=== PATIENT | female | born 1955 | race Caucasian/White ===

== ENCOUNTER 2017-12-18 11:13 | Inpatient (IN) | payer MEDICAID ==
[~2017-12-18] VITALS: Ht 162.6 cm; Wt 54.4 kg
[~2017-12-18 11:13] MED LIST: ACCUNEB SO1.25 MG/1 INH; AEROECLIPSE1 EACH; AUGMENTIN 875875 MG PO; BACTRIM DS TAB1 EACH PO; LEVAQUIN 750 M750 MG PO; LISINOPRIL10 MG PO; MUCINEX600 MG PO; NICOTINE TRANSD21 M1 TOP; NICOTINE TRANSD21 M1 TRANSDERM; NORCO 5-325 TA1 EAC1 PO; PREDNISONE 10 M10 MG PO; SPIRIVA; SYMBICORT160 MCG/4.; SYMBICORT160 MCG/4. INH; ULTRAM50 MG PO; UNKNOWN BP MED; VALIUM5 MG PO; VICODIN 5-5001 EACH PO
[2017-12-18 11:19] VITALS: BP 176/99
[2017-12-18] MEDS ORDERED: NICOTINE TRANSD21 M1 TRANSDERM (11:29)
[2017-12-18] MEDS ORDERED: BENADRYL25 MG PO (11:30)
[2017-12-18 11:38] LABS: ABSOLUTE BASOPHILS 0.1 thou/uL (0.0-0.2); ABSOLUTE EOSINOPHILS 0.1 thou/uL (0.0-0.7); ABSOLUTE LYMPHOCYTES 1.9 thou/uL (0.8-5.3); ABSOLUTE MONOCYTES 0.7 thou/uL (0.0-1.2); ABSOLUTE NEUTROPHILS 12.4 thou/uL (1.6-8.1); BASOPHILS 0.6 %; EOSINOPHILS 0.5 %; HEMATOCRIT 39.2 % (37.0-47.0); HEMOGLOBIN 13.3 gm/dL (12.0-15.0); LYMPHOCYTES 12.5 %; MCH 35.3 pg (26.0-34.0); MCHC 33.8 g/dL (28.0-37.0); MCV 104.3 fL (80.0-100.0); MONOCYTES 4.6 %; MPV 7.2 fl. (7.2-11.1); NUCLEATED RBCS 0 /100WBC; PLATELET COUNT* 348 thou/uL (150-400); POLYS 81.8 %; RBC 3.76 mil/uL (4.20-5.00); WBC 15.2 thou/uL (4.0-11.0)
[2017-12-18 11:46] LABS: ANION GAP 14 mmol/L (7-16); BUN 12 mg/dL (7-18); CALCIUM 8.3 mg/dL (8.5-10.1); CHLORIDE 98 mmol/L (98-107); CO2 21 mmol/L (21-32); CREATININE 0.6 mg/dL (0.6-1.3); GLUCOSE 81 mg/dL (70-99); POTASSIUM 3.6 mmol/L (3.5-5.1); SODIUM 133 mmol/L (136-145)
[2017-12-18 11:57] LABS: ALBUMIN 3.8 g/dL (3.4-5.0); ALKALINE PHOSPHATASE 80 U/L (46-116); LIPASE 65 U/L (73-393); MAGNESIUM 1.8 mg/dL (1.8-2.4); NT-PRO BRAIN NAT PEPTIDE 60 pg/mL (<300); SGOT 37 U/L (15-37); SGPT 25 U/L (30-65); TOTAL BILIRUBIN 1.5 mg/dL (<0.1-1.0); TOTAL PROTEIN 6.9 g/dL (6.4-8.2); TROPONIN-I LEVEL <0.06 ng/mL (<0.06)
[2017-12-18 14:38] VITALS: BP 166/83
--- NOTE | 2017-12-18 15:28 | EKG ---
[place] [address] ELECTROCARDIOGRAM REPORT Name: NEENA DIAZ Room: [address] ADM IN M.R.#: [id number] Admission: 12/18/17 Attend Phys: Tyrel Dubose Discharge: Date of : 55 Report #: [id number] THIS REPORT FOR: //name// [facility] ED Test Date: 2017-12-18 Test Time: 11:17:34 Pat Name: NEENA DIAZ Department: Room: [facility] Gender: F Ironer Sock: Kapil CHEN : 1955 Requested By: Nik Mckenzie Order Number: [id number] MD: Michael Coleman Measurements Intervals [place] Rate: 102 P: 81 NM: 168 QRS: 31 QRSD: 96 T: 57 QT: 340 QTc: 443 Interpretive Statements Sinus tachycardia Consider right atrial enlargement septal infarct, old Compared to ECG 07/30/2017 16:52:11 Myocardial infarct finding now present Sinus rhythm no longer present T-wave abnormality no longer present Electronically Signed On 12-18-2017 15:27:52 CDT by Michael Coleman [email or web address] <ELECTRONICALLY SIGNED> By: Michael Coleman MD, FAC 12/18/17 1527 1117 1117 Michael Coleman MD, [facility] /EPI
[2017-12-18 15:40] VITALS: BP 170/80
[2017-12-18 15:53] LABS: CREATININE 0.7 mg/dL (0.6-1.3)
--- NOTE | 2017-12-18 18:43 | NUR ---
PT SCORING A 16 ON HER CIWA ATIVAN GIVEN X 2 PT IS ALERT AND ORIENTED VERY RESTLESS AND TREMORS NOTED UP SBA D/T TREMORS PT IS COOPERATIVE AND PLEASANT CALLS OUT APPROPRIATELY ST ON THE MONITOR BLOOD PRESSURE SLIGHTLY ELEVATED
[2017-12-18 19:35] VITALS: BP 128/75
[2017-12-19] VITALS: BP 128/70
[2017-12-19 04:00] VITALS: BP 149/86
--- NOTE | 2017-12-19 04:46 | NUR ---
END SHIFT: PT RESTED WELL. CIWA HAS DECREASED THROUGHOUT NIGHT. PT REMAINS ORIENTED AND COOPERATIVE. SR ON MONITOR. ASSESSMENT UNCHANGED. VSS. SAFETY PRECAUTIONS IN PLACE. CALL LIGHT IN REACH. WILL CONT TO MONITOR.
[2017-12-19 08:00] VITALS: BP 167/89
[2017-12-19 10:27] LABS: ABSOLUTE EOSINOPHILS 0.2 thou/uL (0.0-0.7); ABSOLUTE LYMPHOCYTES 2.4 thou/uL (0.8-5.3); ABSOLUTE MONOCYTES 0.7 thou/uL (0.0-1.2); ABSOLUTE NEUTROPHILS 3.1 thou/uL (1.6-8.1); BASOPHILS 0.3 %; EOSINOPHILS 3.2 %; HEMATOCRIT 38.9 % (37.0-47.0); HEMOGLOBIN 13.2 gm/dL (12.0-15.0); LYMPHOCYTES 37.3 %; MCH 36.4 pg (26.0-34.0); MCHC 33.9 g/dL (28.0-37.0); MCV 107.3 fL (80.0-100.0); MONOCYTES 10.5 %; NUCLEATED RBCS 0 /100WBC; PLATELET COUNT* 304 thou/uL (150-400); POLYS 48.7 %; RBC 3.62 mil/uL (4.20-5.00); RDW-CV 15.7 % (10.5-14.5); WBC 6.3 thou/uL (4.0-11.0)
[2017-12-19 10:29] LABS: CALCIUM 7.9 mg/dL (8.5-10.1); CREATININE 0.7 mg/dL (0.6-1.3); POTASSIUM 4.1 mmol/L (3.5-5.1)
[2017-12-19 11:17] VITALS: BP 128/73
--- NOTE | 2017-12-19 11:31 | NUR ---
ASSUMED RESPONSIBILITY OF PT THIS AM PT IS ALERT AND ORIENTEDX4 BUT ANXIOUS HRR AT 88 SOMETIMES TACHY WHEEZES AND COARSE LS NOTED DUONEB TX'S STARTED Q6H SCHEDULED PT IS A SMOKER 1/2-1 PACK A DAY NEW IV TO RIGHT HAND NS AT 100/H WBC IS 15.2 ECHO DONE THIS AM AND PLAN FOR STRESS TEST THIS AFTERNOON
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
[2017-12-19 15:46] VITALS: BP 143/87
--- NOTE | 2017-12-19 15:50 | 2DMMODE ---
[place] [address] 2 D/M-MODE ECHOCARDIOGRAM Name: NEENA DIAZ Room: [address] IN [facility]#: [id number] Admission: 12/18/17 Attend Phys: Pablo Rdz Discharge: Date of : 55 Date of Service: 12/19/17 1549 Report #: [id number] THIS REPORT FOR: //name// APPROVED REPORT Study performed: 12/19/2017 09:32:27 EXAM: Comprehensive 2D, Doppler, and color-flow Echocardiogram Patient Location: In-Patient Room #: 204 Status: routine BSA: 1.56 HR: 82 bpm BP: 167/89 mmHg Rhythm: NSR Other Information Study Quality: Good Indications Dyspnea Chest Pain 2D Dimensions LVEF(%): 70.96 (>50%) IVSd: 8.88 (7-11mm) LVOT Diam: 19.63 (18-24mm) LVDd: 39.81 mm PWd: 8.39 (7-11mm) Ascending Ao: 24.14 (22-36mm) LVDs: 23.97 (25-40mm) Aortic Root: 27.61 mm Lewis's LVEF: 70.96 % Volumes Left Atrial Volume (Systole) LA ESV Index: 19.60 mL/m2 Aortic Valve AoV Peak Artur.: 1.23 m/s AO Peak Gr.: 6.04 mmHg LVOT Max P.62 mmHg AO Mean Gr.: 3.17 mmHg LVOT Mean P.60 mmHg LVOT Max V: 0.95 m/s AO V2 VTI: 23.02 cm LVOT Mean V: 0.57 m/s LEONEL (VTI): 2.65 cm2 LVOT V1 VTI: 20.16 [place] [address] 2 D/M-MODE ECHOCARDIOGRAM Name: NEENA DIAZ Room: [address] IN ..#: [id number] Admission: 12/18/17 Attend Phys: Pablo Rdz Discharge: Date of : 55 Date of Service: 12/19/17 1549 Report #: [id number] E/A Ratio: 1.14 MV Decel. Time: 178.19 ms MV E Max Artur.: 0.99 m/s MV PHT: 51.67 ms MVA (PHT): 4.26 cm2 TDI E/Lateral E': 9.00 E/Medial E': 8.25 Medial E' Artur.: 0.12 m/s Lateral E' Artur.: 0.11 m/s Pulmonary Valve PV Peak Artur.: 1.00 m/s PV Peak Gr.: 4.02 mmHg Tricuspid Valve TR Peak Gr.: 21.34 mmHg RVSP: 26.00 mmHg Left Ventricle The left ventricle is normal size. There is normal LV segmental wall motion. There is normal left ventricular wall thickness. Left ventricular systolic function is normal. LVEF is 60-65%. The left ventricular diastolic function is normal. Right Ventricle The right ventricle is normal size. The right ventricular systolic function is normal. Atria The left atrium size is normal. The right atrium size is normal. Aortic Valve The aortic valve is normal in structure. No aortic regurgitation is present. There is no aortic valvular stenosis. Mitral Valve The mitral valve is normal in structure. Trace mitral regurgitation. No evidence of mitral valve stenosis. Tricuspid Valve The tricuspid valve is normal in structure. Trace tricuspid regurgitation. The RVSP is ____26___ mmHg. Pulmonic Valve The pulmonary valve is normal in structure. There is no pulmonic [place] [address] 2 D/M-MODE ECHOCARDIOGRAM Name: NEENA DIAZ Room: [address] IN ..#: [id number] Admission: 12/18/17 Attend Phys: Pablo Rdz Discharge: Date of : 55 Date of Service: 12/19/17 1549 Report #: [id number] Great Vessels The aortic root is normal in size. IVC is normal in size and collapses with >50% inspiration Pericardium There is no pericardial effusion. <Conclusion> The left ventricle is normal size. There is normal left ventricular wall thickness. Left ventricular systolic function is normal. LVEF is 60-65%. The left ventricular diastolic function is normal. Trace tricuspid regurgitation. The RVSP is ____26___ mmHg. <ELECTRONICALLY SIGNED> By: Arnold Link MD, FACC 12/19/17 1549 1549 1549 Arnold Link MD, FACC /INF
--- NOTE | 2017-12-19 18:50 | NUR ---
PT IS ALERT AND ORIENTED DECREASED ANXIETY STRESS TEST DONE PROBABLY DISCHARGE TOMORROW NO ISSUES THUS FAR CALL LIGHT IN REACH
[2017-12-19 19:35] VITALS: BP 148/86
--- NOTE | 2017-12-19 20:04 | CARDNUC ---
[place] [address] CARDIAC NUCLEAR IMAGING REPORT Name: NEENA DIAZ Room: [address] IN [facility]#: [id number] Admission: 12/18/17 Attend Phys: Pablo Rdz Discharge: Date of : 55 Date of Service: 12/19/172003 Report #: [id number] THIS REPORT FOR: //name// APPROVED REPORT Study performed: 12/19/2017 11:16:00 Exam: Nuclear Stress Test Indication: Chest pain Patient Location: In-Patient Room #: 204 Stress Tech: Jessie Lizama Stress Nurse: Reyna Michaels RN NM Tech:BRUNO Romero Ht: 5 ft 4 in Wt: 115 lbs BSA: 1.55 m2 BMI: 19.73 Medical History Medical History: HTN, Hyperlipidemia, Smoking, COPD Medications: lisinopril Allergies: No known drug allergies Cardiac Risk Factors: Age, Current Smoker, HTN, Hyperlipidemia Exercise History: Sedentary Stress Test Details Stress Test: Pharmacologic stress was paired with low level exercise. Reason for pharmacologic stress test: physical limitation. HR Resting HR: 94 bpm Max Heart Rate (APMHR): 158 bpm Max HR Achieved: 124 bpm Target HR (85% APMHR): 134 bpm % of APMHR: 78 Recovery HR: 110 bpm BP Resting BP: 162/95 mmHg Max BP: 149/88 mmHg ECG Resting ECG: Sinus Rhythm, normal EKG Stress ECG: Sinus Rhythm, normal EKG ST Change: [place] [address] CARDIAC NUCLEAR IMAGING REPORT Name: NEENA DIAZ Room: [address]#: [id number] Admission: 12/18/17 Attend Phys: Pablo Rdz Discharge: Date of : 55 Date of Service: 12/19/172003 Report #: [id number] Arrhythmia: None Recovery ECG: Sinus Rhythm, normal EKG Recovery ST Change: None Recovery Arrhythmia: None Clinical Reason for Termination: Completed protocol Stress Symptoms: Dyspnea Exercise duration: 3 min 59 sec Exercise capacity: 1.54 METs The patient had no significant chest pain with Lexiscan infusion. She did note some shortness of breath felt to be a medication side effect. Nurse Comments Patient complained of sob post lexiscan injection, denied chest pain, resolved in recovery. Stress ECG Conclusion The baseline 12-lead electrocardiogram showed sinus rhythm thousand Mr. T wave abnormality. EKGs obtained during and post Lexiscan infusion showed sinus rhythm and sinus tachycardia with no significant ST or T wave changes when compared baseline. NM EXAM: Myocardial Perfusion REST/STRESS Imaging Protocol: Rest Tc-99m/Stress Tc-99m 1 day Resting Data Rest SPECT myocardial perfusion imaging was performed in supine position 30 minutes following the intravenous injection of 12.0 mCi of Tc-99m Sestamibi. Time of rest injection: 1310 Time of rest imagin The images were gated to evaluate regional wall motion and calculate left ventricular ejection fraction. Administration Route: IV Pharmacologic Stress Pharmacologic stress test was performed by injecting Regadenoson 0.4 mg IV push followed by the intravenous injection of 34.9 mCi of Tc-99m Sestamibi. Time of stress injection: 1430 Time of stress imagin Administration Route: IV Gated Stress SPECT was performed 40 minutes [place] [address] CARDIAC NUCLEAR IMAGING REPORT Name: NEENA DIAZ Room: [address] IN ..#: [id number] Admission: 12/18/17 Attend Phys: Pablo Rdz Discharge: Date of : 55 Date of Service: 12/19/172003 Report #: [id number] The images were gated to evaluate regional wall motion and calculate left ventricular ejection fraction. Prone imaging was performed. Study Quality Study: Good Artifact: No artifact Study Data At rest, the left ventricular ejection fraction was 68%.. Post stress, the left ventricular ejection was 69%.. TID = 1.05. Perfusion Normal left ventricular perfusion. Wall Motion Normal left ventricular wall motion. Nuclear Conclusion ECG Findings: negative for ischemia Clinical Findings: negative for ischemia Nuclear Findings: negative for ischemia Exercise Capacity: not assessed Left Ventricular Function: normal Risk Study: low Myocardial perfusion images show no defect to suggest infarct or ischemia. Left ventricular systolic function is normal on gated studies. This is a low risk study. <Conclusion> The baseline 12-lead electrocardiogram showed sinus rhythm thousand Mr. T wave abnormality. EKGs obtained during and post Lexiscan infusion showed sinus rhythm and sinus tachycardia with no significant ST or T wave changes when compared baseline. <ELECTRONICALLY SIGNED> By: Arnold Link MD, FACC 12/19/172003 03 03 Arnold Link MD, FACC /INF
[2017-12-20] VITALS: BP 154/72
[2017-12-20 04:00] VITALS: BP 133/75
--- NOTE | 2017-12-20 04:27 | NUR ---
END SHIFT: PT RESTED WELL. NO COMPLAINTS. CIWA IS DECREASING. ORIENTED AND STEADY WHEN UP. NO PAIN. PT STATES SHE IS READY FOR DC. ASSESMENT UNCHANGED. VSS. SAFETY PRECAUTIONS IN PLACE. CALL LIGHT IN REACH. PERFORMED HOURLY ROUNDING. WILL CONT TO MONITOR.
[2017-12-20 08:00] VITALS: BP 155/79
[2017-12-20 11:24] VITALS: BP 127/79
[2017-12-20 11:55] LABS: HEMATOCRIT 36.7 % (37.0-47.0); HEMOGLOBIN 12.4 gm/dL (12.0-15.0); MCH 35.9 pg (26.0-34.0); MCHC 33.7 g/dL (28.0-37.0); MCV 106.6 fL (80.0-100.0); MPV 7.1 fl. (7.2-11.1); RBC 3.45 mil/uL (4.20-5.00); RDW-CV 16.2 % (10.5-14.5); WBC 5.6 thou/uL (4.0-11.0)
[2017-12-20 12:02] LABS: CALCIUM 8.5 mg/dL (8.5-10.1); CREATININE 0.8 mg/dL (0.6-1.3); MAGNESIUM 2.1 mg/dL (1.8-2.4)
--- NOTE | 2017-12-20 12:37 | NUR ---
RECEIVED REPORT. ASSUMED CARE OF PT AROUND 729. PT ALERT AND ORIENTED X4. VSS. O2 SAT 100% ON RA. CIWA 0 AT THIS TIME. PT LOOKING FORWARD TO GOING HOME. IV PATENT AND INFUSING. SENIOR INSTRUCTOR IN PLACE TRACING SR. AM ASSESSMENT AND VITALS COMPLETED CHARTED. PT EATING AND DRINKING WITHOUT ISSUE. PT UP WITH STANDBY ASSIST TO THE BATHROOM, VOIDING WITHOUT ISSUE. PT INFORMED OF PLAN OF CARE, PT COMMUNICATES UNDERSTANDING. PT PLAN IS TO DC TODAY. LOW FALL RISK PRECAUTIONS IN PLACE. CALL LIGHT IS WITHIN REACH. WCTM FOR DURATION OF SHIFT. HOURLY ROUNDING COMPLETED.
[2017-12-20] MEDS ORDERED: ATIVAN1 MG PO (12:47)
[2017-12-20] MEDS ORDERED: OMEPRAZOLE 20 M20 M1 PO (12:48)
[2017-12-20 12:49] VITALS: BP 127/79
--- NOTE | 2017-12-20 15:09 | NUR ---
Pt discharging to home today. Cab voucher provided
--- NOTE | 2017-12-20 16:19 | NUR ---
DISCHARGE ORDERS RECEIVED. DISCHARGE COMPLETED DOCUMENTED. DISCHARGE SUMMARY AND CARE NOTES GONE OVER WITH PT. PT COMMUNICATES UNDERSTANDING. SCRIPTS GIVEN. ALL BELONGINGS GATHERED AND SENT WITH THE PT. IV AND SOLO MUSICIAN REMOVED. PT VSS AT TIME OF DC. CIWA REMAINS 0. PT EATING AND DRINKING WITHOUT ISSUE. VOIDING WITHOUT ISSUE. PT LEFT UNIT WITH NURSING STAFF. PT LEFT HOSPITAL IN CAB WITH VOUCHER, TO HOME WITH NO STOPS.
== END 2017-12-20 15:47 | disposition home or self-care (01) | DRG 311 ==
LOC: M.ERS 11:13 → M.2W 13:38 → M.TBA-ER 13:38 → M.2W 14:57
PROVIDERS: Emergency Medicine Emergency Medical Services; ADMIT Internal Medicine
PROC: B24BZZ4 Ultrasonography of Heart with Aorta, Transesophageal (ICD-10-PCS; principal; 2017-12-19)
DX: I20.9 Angina pectoris, unspecified (principal); F10.230 Alcohol dependence with withdrawal, uncomplicated; J44.1 Chronic obstructive pulmonary disease with (acute) exacerbation; E87.1 Hypo-osmolality and hyponatremia; E78.5 Hyperlipidemia, unspecified; K02.9 Dental caries, unspecified; K04.7 Periapical abscess without sinus; E87.6 Hypokalemia; F32.9 Major depressive disorder, single episode, unspecified; F17.210 Nicotine dependence, cigarettes, uncomplicated; Z90.49 Acquired absence of other specified parts of digestive tract; Z79.899 Other long term (current) drug therapy

== ENCOUNTER 2018-07-23 07:44 | Inpatient (IN) | payer MEDICAID ==
[~2018-07-23] VITALS: Ht 162.6 cm; Wt 61.5 kg
[~2018-07-23 07:44] MED LIST changes: +ATIVAN1 MG PO; +BENADRYL25 MG PO; +OMEPRAZOLE 20 M20 M1 PO
[2018-07-23 07:45] VITALS: BP 157/73
[2018-07-23] MEDS ORDERED: NORVASC5 MG PO (07:49)
[2018-07-23] MEDS ORDERED: GABAPENTIN 100100 MG PO (07:49)
[2018-07-23] MEDS ORDERED: MELATONIN1 MG PO (07:50)
[2018-07-23] MEDS ORDERED: SPIRIVA INH (07:50)
[2018-07-23 08:14] LABS: ABSOLUTE EOSINOPHILS 0.2 thou/uL (0.0-0.7); ABSOLUTE LYMPHOCYTES 3.1 thou/uL (0.8-5.3); ABSOLUTE MONOCYTES 0.6 thou/uL (0.0-1.2); BASOPHILS 0.5 %; EOSINOPHILS 1.8 %; HEMATOCRIT 33.7 % (37.0-47.0); HEMOGLOBIN 11.4 gm/dL (12.0-15.0); LYMPHOCYTES 34.8 %; MCH 36.8 pg (26.0-34.0); MCHC 33.8 g/dL (28.0-37.0); MCV 108.8 fL (80.0-100.0); MONOCYTES 6.8 %; MPV 7.4 fl. (7.2-11.1); NUCLEATED RBCS 0 /100WBC; PLATELET COUNT* 238 thou/uL (150-400); POLYS 56.1 %; RBC 3.09 mil/uL (4.20-5.00); RDW-CV 14.8 % (10.5-14.5)
--- NOTE | 2018-07-23 08:17 | NUR ---
RT HAS BEEN PAGED.
--- NOTE | 2018-07-23 08:21 | NUR ---
RT IS HERE TO GIVE PT BREATHING TX AT THIS TIME.
[2018-07-23 08:25] LABS: APTT 22.9 Seconds (25.0-31.3); PROTIME 10.5 Seconds (9.20-11.50)
[2018-07-23 08:38] LABS: ANION GAP 4 mmol/L (7-16); BUN 5 mg/dL (7-18); CALCIUM 8.1 mg/dL (8.5-10.1); CHLORIDE 109 mmol/L (98-107); CO2 28 mmol/L (21-32); CREATININE 0.7 mg/dL (0.6-1.3); GLUCOSE 85 mg/dL (70-99); POTASSIUM 3.7 mmol/L (3.5-5.1); SODIUM 141 mmol/L (136-145)
[2018-07-23 08:42] LABS: ALBUMIN 3.1 g/dL (3.4-5.0); ALKALINE PHOSPHATASE 78 U/L (46-116); LIPASE 79 U/L (73-393); MAGNESIUM 1.8 mg/dL (1.8-2.4); NT-PRO BRAIN NAT PEPTIDE 221 pg/mL (<300); SGOT 39 U/L (15-37); SGPT 26 U/L (30-65); TOTAL BILIRUBIN 0.3 mg/dL (<0.1-1.0); TOTAL PROTEIN 5.9 g/dL (6.4-8.2); TROPONIN-I LEVEL <0.06 ng/mL (<0.06)
[2018-07-23 09:26] LABS: URINE BILIRUBIN NEGATIVE (Negative); URINE BLOOD 1+ (Negative); URINE CLARITY CLEAR; URINE COLOR YELLOW; URINE GLUCOSE-RANDOM NEGATIVE (Negative); URINE KETONES NEGATIVE (Negative); URINE PROTEIN NEGATIVE (Negative); URINE UROBILINOGEN 0.2 E.U./dl (0.2-1.0)
[2018-07-23 09:37] LABS: URINE LEUKOCYTES-REFLEX 3+ (Negative); URINE NITRITE-REFLEX POSITIVE (Negative)
[2018-07-23 09:38] LABS: CASTS None Seen /LPF (None Seen); CRYSTALS None Seen /LPF (None Seen); MUCUS 0-3 Light strn/LPF (None Seen); SQUAMOUS 0-3 Few /LPF (0-3); URINE RBC 0-2 Rare /HPF (0-2); URINE WBC-REFLEX >25 Many /HPF (0-5)
[2018-07-23 11:26] VITALS: BP 165/70
--- NOTE | 2018-07-23 11:46 | EKG ---
[place] [address] ELECTROCARDIOGRAM REPORT Name: NEENA DIAZ Room: [address] ADM IN M.R.#: [id number] Admission: 07/23/18 Attend Phys: Karen Baugh MD Discharge: Date of : 55 Report #: [id number] THIS REPORT FOR: //name// [facility] ED Test Date: 2018-07-23 Test Time: 07:49:30 Pat Name: NEENA DIAZ Department: Room: [facility] Gender: F Power Washer: YAA : 1955 Requested By: Rahul Wei Order Number: [id number] MD: Michael Coleman Measurements Intervals [place] Rate: 77 P: 91 DE: 166 QRS: 39 QRSD: 94 T: 75 QT: 376 QTc: 426 Interpretive Statements Sinus rhythm Consider right atrial enlargement Compared to ECG 12/18/2017 11:17:34 Sinus tachycardia no longer present Myocardial infarct finding no longer present Electronically Signed On 07-23-2018 11:46:12 STOP ATTACHER by Michael Coleman [email or web address] <ELECTRONICALLY SIGNED> By: Michael Coleman MD, [facility] 07/23/18 1146 0749 0749 Michael Coleman MD, [facility] /EPI
[2018-07-23 11:52] VITALS: BP 175/90
[2018-07-23 16:08] VITALS: BP 126/64
--- NOTE | 2018-07-23 18:28 | NUR ---
ALERT AND ORIENTED X4. UP WITH STAND BY ASSIST X1 TO BATHROOM. IV IS PATENT AND SALINE LOCKED. PAIN BEING MANAGED WITH PO MEDICATION. DENIES NAUSEA. NICOTINE PATCH IN PLACE. TOLERATING DIET. FALL CONTRACT EDUCATED GIVEN AND SIGNED. VSS ON ROOM AIR. HOURLY ROUNDS HAVE BEEN MAINTAINED SINCE ARRIVING ON UNIT. CALL LIGHT IS WITHIN REACH. NURSING WILL CONTINUE TO MONITOR.
--- NOTE | 2018-07-23 19:59 | NUR ---
PATIENT ARRIVED TO UNIT AT 1145. ALERT AND ORIENTED X4. UP STAND BY ASSIST TO THE BATHROOM. DENIES NEED FOR PAIN AND NAUSEA MEDICATION. IV IS PATENT AND SALINE LOCKED. PATIENT HAS BEEN ORIENTED TO ROOM. CALL LIGHT IS WITHIN REACH. NURSING WILL CONTINUE TO MONITOR.
[2018-07-23 20:00] VITALS: BP 145/78
[2018-07-24] VITALS: BP 120/59
--- NOTE | 2018-07-24 03:51 | NUR ---
PT ALERT ORIENTED. UP TO BR WITH STD BY ASSIST. TYLENOL GIVEN HS FOR OLD RIB FX PAIN. PT RESTING QUIETYL WITH EYES CLOSED. TELEMETRY SHOWS SR. WILL CONTININUE TO MONITOR.
[2018-07-24 04:00] VITALS: BP 108/87
[2018-07-24 05:18] LABS: HEMATOCRIT 35.3 % (37.0-47.0); HEMOGLOBIN 11.9 gm/dL (12.0-15.0); MCH 36.4 pg (26.0-34.0); MCHC 33.6 g/dL (28.0-37.0); MCV 108.3 fL (80.0-100.0); MPV 7.8 fl. (7.2-11.1); RBC 3.26 mil/uL (4.20-5.00); RDW-CV 14.4 % (10.5-14.5); WBC 8.4 thou/uL (4.0-11.0)
[2018-07-24 05:35] LABS: ALBUMIN 3.2 g/dL (3.4-5.0); CALCIUM 8.5 mg/dL (8.5-10.1); CREATININE 0.8 mg/dL (0.6-1.3); MAGNESIUM 1.9 mg/dL (1.8-2.4); POTASSIUM 3.5 mmol/L (3.5-5.1); TOTAL BILIRUBIN 0.5 mg/dL (<0.1-1.0); TOTAL PROTEIN 6.2 g/dL (6.4-8.2)
[2018-07-24 08:00] VITALS: BP 110/75
--- NOTE | 2018-07-24 11:01 | NUR ---
SITE LEADER FAXED [employer] WITH [employer] PATIENT'S FACESHEET, H&P, AND DME ORDER FOR HOME NEBULIZER. CM WILL REMAIN AVIALABLE TO ASSIST AND FOLLOW NEEDED.
[2018-07-24 12:11] VITALS: BP 124/65
--- NOTE | 2018-07-24 13:24 | NUR ---
Pt is A&O. Known to this CM from previous hospital stay. Resides at home alone. Independent with ADLS. Pt has STEPHON caregivers through [facility] that come 2x/week for 32 hours/day. Pt has home o2 through [facility]. Brit from [facility] delivered a nebulizer to Pt's room. Pt reports feeling sad lately d/t her ex dying in April. [place] Following.
[2018-07-24 16:00] VITALS: BP 135/66
--- NOTE | 2018-07-24 18:23 | NUR ---
PATIENT RESTING IN ROOM. UP AD SAQIB WITH STEADTY GAIT. VITAL SIGNS STABLE ANDPATINET IN NO APPARENT DISTRESS AT THTIS TIME. KATHY DOES SUFFER FROM ANXIETY BUT IS EASILY COMFORTED WITH CONVERSATION. HOURY ROUNDING COMPLETED FOR [place] SAFETY AND PATIENT IS PROGRESSING TOWARDS GOALS. KATHY HAS EXPRESSED THE INTENT TO DISCHARGE BY MONDAY TO SELF CARE AT HOME.
[2018-07-24 19:30] VITALS: BP 117/82; BP 149/76
[2018-07-25] VITALS: BP 133/66
[2018-07-25 04:00] VITALS: BP 150/82
--- NOTE | 2018-07-25 05:10 | NUR ---
VITALS WNL. SEE MAR. SEE CHARTING. HOURLY ROUNDING FOR SAFETY.
[2018-07-25 08:00] VITALS: BP 142/80
[2018-07-25 12:00] VITALS: BP 143/66
[2018-07-25 16:00] VITALS: BP 134/71
[2018-07-26] VITALS: BP 141/69
[2018-07-26 04:00] VITALS: BP 151/66
[2018-07-26 04:50] LABS: ABSOLUTE LYMPHOCYTES 1.3 thou/uL (0.8-5.3); ABSOLUTE MONOCYTES 0.5 thou/uL (0.0-1.2); ABSOLUTE NEUTROPHILS 9.5 thou/uL (1.6-8.1); BASOPHILS 0.1 %; HEMATOCRIT 33.9 % (37.0-47.0); HEMOGLOBIN 11.3 gm/dL (12.0-15.0); LYMPHOCYTES 11.8 %; MCH 36.4 pg (26.0-34.0); MCHC 33.5 g/dL (28.0-37.0); MCV 108.6 fL (80.0-100.0); MONOCYTES 4.7 %; MPV 7.6 fl. (7.2-11.1); NUCLEATED RBCS 0 /100WBC; PLATELET COUNT* 254 thou/uL (150-400); POLYS 83.4 %; RBC 3.12 mil/uL (4.20-5.00); RDW-CV 14.9 % (10.5-14.5); WBC 11.4 thou/uL (4.0-11.0)
--- NOTE | 2018-07-26 05:20 | NUR ---
VITALS WNL. SEE MAR. SEE CHARTING. HOURLY ROUNDING FOR SAFETY.
[2018-07-26 05:33] LABS: CALCIUM 8.6 mg/dL (8.5-10.1); CREATININE 0.7 mg/dL (0.6-1.3); MAGNESIUM 2.2 mg/dL (1.8-2.4); POTASSIUM 3.8 mmol/L (3.5-5.1); TOTAL BILIRUBIN 0.3 mg/dL (<0.1-1.0); TOTAL PROTEIN 5.9 g/dL (6.4-8.2)
[2018-07-26 07:35] VITALS: BP 147/72
[2018-07-26 12:39] VITALS: BP 146/89
[2018-07-26 16:22] VITALS: BP 150/80
--- NOTE | 2018-07-26 18:24 | NUR ---
ASSUMED CARE AT 0730. PT REMAINS A&O X4 CALM AND COOPERATIVE. PT VSS ON ROOM AIR. PT TRACING SR ON THE MONITOR. PT LUNGS CONTINUE TO BE WHEEZY ON ASCULTATION. SKIN DRY WARM AND INTACT. C/O PAIN CONTROLLED WITH PRN PAIN MEDICATION X1 TODAY. HOURLY ROUNDING COMPLETED FOR COMFORT AND SAFTEY. NURSING WILL CONTINUE TO MONITOR.
[2018-07-26 19:30] VITALS: BP 129/76
[2018-07-27] VITALS: BP 141/64
[2018-07-27 04:00] VITALS: BP 140/84
[2018-07-27 06:56] LABS: CALCIUM 8.7 mg/dL (8.5-10.1); CREATININE 0.9 mg/dL (0.6-1.3); MAGNESIUM 2.2 mg/dL (1.8-2.4); POTASSIUM 3.5 mmol/L (3.5-5.1)
--- NOTE | 2018-07-27 07:02 | NUR ---
TACHYNPNEA AT HS. SEE MAR. SEE CHART. FALL PRECAUTIONS IN PLACE. HOURLY ROUNDING FOR SAFETY.
--- NOTE | 2018-07-27 07:04 | NUR ---
VITALS WNL. SEE MAR. SEE CHARTING. HOURLY ROUNDING FOR SAFETY.
[2018-07-27 07:54] VITALS: BP 141/83
--- NOTE | 2018-07-27 11:14 | CON ---
[address] [address] CONSULTATION Name: NEENA DIAZ Room: [address] IN M.R.#: [id number] Admission: 07/23/18 Attend Phys: Karen Baugh MD Discharge: Date of : 55 Report #: [id number] THIS REPORT FOR: //name// CC: AUDREY physician/PCP Karen Baugh REASON FOR CONSULTATION: COPD. HISTORY OF PRESENT ILLNESS: This is a 62-year-old female patient with his longstanding history of smoking, who unfortunately continues to smoke. She smoked around a half pack a day for the last 40 years. She also has history of COPD, on Symbicort and breathing treatment at home. She admitted to the hospital with increasing shortness of breath of few weeks' duration. She had some records that she was evaluated at [facility] ER back on 05/22/2018 and at that time, she had CT scan with some ground glass infiltrate in the right upper lobe and nodular infiltrates. Apparently, she also sustained a fall at that time and she had a rib fracture. She was treated with oral antibiotic and steroids per her primary care physician with slight improvement in her symptoms and her symptoms started back with wheezes, cough, mostly dry, not producing any sputum and feeling short of breath. She presented to the ER and being evaluated. She reported history of feeling fever, chills, nausea, but no vomiting. She told me she had no sick contacts. She is still having rib pain. She tried not to take pain medicine. She reported poor appetite. She denied any lower extremity edema or calf tenderness. She denied any chest pain other than the rib pain. She has history of alcohol use and she continues to smoke. ALLERGIES: No known drug allergies. MEDICATIONS: At the time of admission, she was on Valium, albuterol, Symbicort, omeprazole, lisinopril, gabapentin, melatonin, and Spiriva. PAST MEDICAL HISTORY: Significant for COPD. She had staph infection of the left foot in the past. She has alcohol abuse/history of hypertension, anxiety, gastroesophageal reflux disease, and recently broken ribs in May after a fall and treated for pneumonia. PAST SURGICAL HISTORY: Hysterectomy. FAMILY HISTORY: Reviewed with the patient, noncontributory. SOCIAL HISTORY: He continues to smoke half a pack a day for the last 40 years, although she says she is trying to cut down. She drinks 2 glasses of wine every day. [place] [address] CONSULTATION Name: NEENA DIAZ Room: [address]#: [id number] Admission: 07/23/18 Attend Phys: Karen Baugh MD Discharge: Date of : 55 Report #: [id number] REVIEW OF SYSTEMS: She reported feeling fevers, chills and poor appetite or generalized weakness, but she denied any ear symptoms, sore throat. She reported cough with no sputum production. She denied any chest pain or GI symptoms. She denied change in bowel habits or urinary symptoms. Rest of the review of system was negative. PHYSICAL EXAMINATION: VITAL SIGNS: During my visit, she was on room air with saturation more than 90%, blood pressure 110/75, pulse rate of 100. She was afebrile. GENERAL: Thin lady, awake, alert, anxious. Speaks in full sentences, no distress. HEENT: Head normocephalic, atraumatic. Pupils reactive to light, not pale, no jaundice. Externally looks healthy and normal. Oral cavity: Moist mucous membrane. Mallampati of 2. NECK: Supple. Central trachea. No palpable lymph node. CHEST: Diminished air movement bilaterally, prolonged expiratory phase with end-expiratory wheeze. HEART: S1, S2, no murmur. ABDOMEN: Benign, soft, lax, nontender, positive bowel sounds. No rebound, no rigidity. EXTREMITIES: Lower extremity: No edema, no calf tenderness. NEUROLOGIC: Moving 4 extremities spontaneously. No focal weakness. Cranial nerves grossly normal. PSYCHIATRIC: Mood and affect anxious. Good insight and judgment. SKIN: Normal for age and race. LYMPHATICS: No palpable lymph node. LABORATORY DATA: White blood count 9, hemoglobin 11.4, platelets 238. INR of 1 with a creatinine of 0.8, potassium 3.7, sodium 141. Her BNP was not elevated. IMAGING DATA: Her chest x-ray did not show acute cardiopulmonary process and CT of the chest reviewed, no PE, some emphysematous changes on the nodular and ground-glass infiltrate that was reported on the CT scan back in May at [place], was not seen on the current CT scan. IMPRESSION: 1. Acute respiratory failure. 2. Chronic obstructive pulmonary disease exacerbation. 3. Fractured ribs. 4. History of pulmonary nodules that were not seen on the current CT scan. 5. History of smoking. 6. History of alcohol use/abuse. 7. Hypertension. 8. Anxiety. PLAN: At this point, the patient will be on IV steroids, scheduled nebulization [address] [address] CONSULTATION Name: NEENA DIAZ Room: [address] IN .R.#: [id number] Admission: 07/23/18 Attend Phys: Karen Baugh MD Discharge: Date of : 55 Report #: [id number] treatment. I did pre parole counseling aide her extensively about smoking cessation. Her CT scan report from back on 05/22/2018 at [facility] reported nodular infiltrate and ground-glass infiltrate in the right upper lobe, which had resolved, most likely represented an area of pneumonia at that time. I agree with monitoring him for alcohol withdrawal. We will continue antibiotics. Depending on the clinical progress, we will switch her to p.o. steroids soon. Again, she needs to stay away from cigarettes. Thank you for the consult. We will follow along with you. <ELECTRONICALLY SIGNED> By: Erin Vela MD 07/27/18 1114 1204 [id number] Vela MD /nt
[2018-07-27 12:00] VITALS: BP 147/85
[2018-07-27 16:00] VITALS: BP 159/76
--- NOTE | 2018-07-27 18:38 | NUR ---
ASSUMED CARE OF PT AT 0730. PT REMAINS A&O X4 CALM AND COOPERATIVE. PT UP AD SAQIB AND HAS A STEADY GAIT. PT VSS ON ROOM AIR AND C/O PAIN AND ANXIETY CONTROLLED WITH PRN MEDICATIONS PER NOV. PT TRACING SR ON THE MONITOR. LUNG SOUNDS CONTINUE TO BE WHEEZY EVEN WITHOUT THE USE OF A STETHASCOPE. PT RESTING IN THE CHAIR WATCHING TV, HOURLY ROUNDING COMPLETED FOR COMFORT AND SAFTEY.
[2018-07-27 20:00] VITALS: BP 150/75
[2018-07-28] VITALS: BP 161/78
--- NOTE | 2018-07-28 02:47 | NUR ---
PT ALERT ORIENTED. UP WITH STD BY ASSIST IN ROOM. TELEMETRY SHOWS SR. PAIN IN R RIBS FROM OLD FX. TRAMADOL GIVEN WITH GOOD RELIEF. DIAZEPAM GIVEN HS. PT RESTING QUIETLY THIS SHIFT. BREATH SOUNDS DIMINISHED. WHEEZING NOTED IN UPPER AIRWAY ONLY. WILL CONTINUE TO MONITOR.
[2018-07-28 04:00] VITALS: BP 148/84
[2018-07-28 08:06] VITALS: BP 151/81
[2018-07-28 12:34] VITALS: BP 151/81
[2018-07-28] MEDS ORDERED: ULTRAM 50MG TAB50 MG PO (12:49)
--- NOTE | 2018-07-28 13:09 | NUR ---
PT DISCHARGED HOME TO SELF CARE, VSS ON ROOM AIR, SKIN W/D/I. PT DENIES C/O PAINOR DISTRESS. PRESCRIPTIONS AND PAPERWORK TAKEN BY PT. PT VERBALIZED UNDERSTANDING OF DC INSTRUCTIONS. IV AND RN CIRCULATING REMOVED PRIOR TO DISCHARGE.
== END 2018-07-28 13:10 | disposition home or self-care (01) | DRG 189 ==
LOC: M.ERS 07:44 → M.2W 09:20 → M.TBA-ER 09:20 → M.2W 11:38
PROVIDERS: Family Medicine; Internal Medicine Critical Care Medicine; ADMIT Internal Medicine
DX: J96.00 Acute respiratory failure, unspecified whether with hypoxia or hypercapnia (principal); N39.0 Urinary tract infection, site not specified; J44.1 Chronic obstructive pulmonary disease with (acute) exacerbation; I10 Essential (primary) hypertension; F41.9 Anxiety disorder, unspecified; K21.9 Gastro-esophageal reflux disease without esophagitis; F17.210 Nicotine dependence, cigarettes, uncomplicated; R91.1 Solitary pulmonary nodule; Z90.710 Acquired absence of both cervix and uterus; Z79.899 Other long term (current) drug therapy

== ENCOUNTER 2018-11-08 19:46 | Emergency (ER) | payer MEDICAID ==
[~2018-11-08] VITALS: Ht 162.6 cm; Wt 55.3 kg
[~2018-11-08 19:46] MED LIST changes: +GABAPENTIN 100100 MG PO; +MELATONIN1 MG PO; +NORVASC5 MG PO; +SPIRIVA INH; +ULTRAM 50MG TAB50 MG PO
[2018-11-08 20:50] LABS: ABSOLUTE EOSINOPHILS 0.1 thou/uL (0.0-0.7); ABSOLUTE LYMPHOCYTES 2.6 thou/uL (0.8-5.3); ABSOLUTE MONOCYTES 0.3 thou/uL (0.0-1.2); BASOPHILS 0.5 %; EOSINOPHILS 1.9 %; HEMATOCRIT 33.5 % (37.0-47.0); HEMOGLOBIN 11.4 gm/dL (12.0-15.0); LYMPHOCYTES 42.9 %; MCH 34.3 pg (26.0-34.0); MCHC 34.1 g/dL (28.0-37.0); MCV 100.5 fL (80.0-100.0); MONOCYTES 5.4 %; MPV 7.2 fl. (7.2-11.1); NUCLEATED RBCS 0 /100WBC; PLATELET COUNT* 272 thou/uL (150-400); POLYS 49.3 %; RBC 3.33 mil/uL (4.20-5.00); RDW-CV 14.8 % (10.5-14.5); WBC 6.1 thou/uL (4.0-11.0)
[2018-11-08 20:52] LABS: URINE BILIRUBIN NEGATIVE (Negative); URINE BLOOD NEGATIVE (Negative); URINE CLARITY CLEAR; URINE COLOR YELLOW; URINE GLUCOSE-RANDOM NEGATIVE (Negative); URINE KETONES NEGATIVE (Negative); URINE LEUKOCYTES-REFLEX 1+ (Negative); URINE PROTEIN NEGATIVE (Negative); URINE SPECIFIC GRAVITY <= 1.005 (1.005-1.030); URINE UROBILINOGEN 0.2 E.U./dl (0.2-1.0)
[2018-11-08 20:56] LABS: URINE NITRITE-REFLEX POSITIVE (Negative)
[2018-11-08 20:58] LABS: CASTS None Seen /LPF (None Seen); CRYSTALS None Seen /LPF (None Seen); SQUAMOUS NONE SEEN /LPF (0-3); URINE RBC None Seen /HPF (0-2); URINE WBC-REFLEX 6-15 Few /HPF (0-5)
[2018-11-08 21:11] LABS: ANION GAP 12 mmol/L (7-16); BUN 8 mg/dL (7-18); CALCIUM 8.8 mg/dL (8.5-10.1); CHLORIDE 106 mmol/L (98-107); CO2 23 mmol/L (21-32); CREATININE 0.8 mg/dL (0.6-1.3); GLUCOSE 89 mg/dL (70-99); POTASSIUM 3.2 mmol/L (3.5-5.1); SODIUM 141 mmol/L (136-145)
[2018-11-08 21:15] LABS: ALBUMIN 3.4 g/dL (3.4-5.0); ALKALINE PHOSPHATASE 96 U/L (46-116); LIPASE 88 U/L (73-393); SGOT 41 U/L (15-37); SGPT 25 U/L (30-65); TOTAL BILIRUBIN 0.2 mg/dL (<0.1-1.0); TOTAL PROTEIN 6.3 g/dL (6.4-8.2); TROPONIN-I LEVEL <0.06 ng/mL (<0.06)
[2018-11-08] MEDS ORDERED: CIPRO250 M1 PO (21:35)
[2018-11-08] MEDS ORDERED: PHENERGAN 25 MG25 M1 PO (21:35)
[2018-11-08 23:02] VITALS: BP 108/55
== END 2018-11-08 23:02 | disposition home or self-care (01) ==
LOC: M.ERS 19:46
PROVIDERS: Emergency Medicine
DX: N39.0 Urinary tract infection, site not specified (principal); R11.2 Nausea with vomiting, unspecified; F17.210 Nicotine dependence, cigarettes, uncomplicated; J44.9 Chronic obstructive pulmonary disease, unspecified; I10 Essential (primary) hypertension; F41.9 Anxiety disorder, unspecified; K21.9 Gastro-esophageal reflux disease without esophagitis; Z90.710 Acquired absence of both cervix and uterus

== ENCOUNTER 2018-12-31 09:56 | Emergency (ER) | payer MEDICAID ==
[~2018-12-31] VITALS: Ht 162.6 cm; Wt 55.3 kg
[~2018-12-31 09:56] MED LIST changes: +CIPRO250 M1 PO; +PHENERGAN 25 MG25 M1 PO
[2018-12-31] MEDS ORDERED: FLONASE 0.05%50 MCG NASAL (10:22)
[2018-12-31] MEDS ORDERED: CLARITIN10 MG PO (10:22)
[2018-12-31] MEDS ORDERED: VALIUM5 MG PO (10:22)
[2018-12-31] MEDS ORDERED: BUSPIRONE HCL10 MG PO (10:24)
[2018-12-31 10:38] LABS: ABSOLUTE BASOPHILS 0.1 thou/uL (0.0-0.2); ABSOLUTE EOSINOPHILS 0.3 thou/uL (0.0-0.7); ABSOLUTE LYMPHOCYTES 2.1 thou/uL (0.8-5.3); ABSOLUTE MONOCYTES 0.6 thou/uL (0.0-1.2); ABSOLUTE NEUTROPHILS 5.9 thou/uL (1.6-8.1); BASOPHILS 0.7 %; EOSINOPHILS 3.7 %; HEMATOCRIT 34.5 % (37.0-47.0); HEMOGLOBIN 11.9 gm/dL (12.0-15.0); LYMPHOCYTES 23.7 %; MCH 35.9 pg (26.0-34.0); MCHC 34.5 g/dL (28.0-37.0); MCV 104.2 fL (80.0-100.0); MONOCYTES 6.1 %; MPV 6.9 fl. (7.2-11.1); NUCLEATED RBCS 0 /100WBC; PLATELET COUNT* 282 thou/uL (150-400); POLYS 65.8 %; RBC 3.31 mil/uL (4.20-5.00); RDW-CV 14.8 % (10.5-14.5)
[2018-12-31 11:01] LABS: ALBUMIN 3.3 g/dL (3.4-5.0); ALKALINE PHOSPHATASE 117 U/L (46-116); ANION GAP 8 mmol/L (7-16); BUN 13 mg/dL (7-18); CALCIUM 7.9 mg/dL (8.5-10.1); CHLORIDE 106 mmol/L (98-107); CO2 27 mmol/L (21-32); CREATININE 0.9 mg/dL (0.6-1.3); GLUCOSE 102 mg/dL (70-99); POTASSIUM 4.3 mmol/L (3.5-5.1); SGOT 40 U/L (15-37); SGPT 27 U/L (30-65); SODIUM 141 mmol/L (136-145); TOTAL BILIRUBIN 0.5 mg/dL (<0.1-1.0); TOTAL PROTEIN 6.3 g/dL (6.4-8.2); TROPONIN-I LEVEL <0.06 ng/mL (<0.06)
[2018-12-31 11:21] LABS: SALICYLATE < 2.8 mg/dL (2.8-20.0)
[2018-12-31 11:22] LABS: ACETAMINOPHEN < 2 ug/mL (10-30); ALCOHOL < 10 mg/dL (<10)
[2018-12-31 11:46] LABS: URINE BILIRUBIN NEGATIVE (Negative); URINE BLOOD 1+ (Negative); URINE CLARITY CLEAR; URINE COLOR YELLOW; URINE GLUCOSE-RANDOM NEGATIVE (Negative); URINE KETONES NEGATIVE (Negative); URINE PROTEIN NEGATIVE (Negative); URINE UROBILINOGEN 0.2 E.U./dl (0.2-1.0)
[2018-12-31 11:47] LABS: URINE LEUKOCYTES-REFLEX 3+ (Negative); URINE NITRITE-REFLEX POSITIVE (Negative)
[2018-12-31 11:53] LABS: AMP/METHAMP Negative (Negative); BARBITURATES Negative (Negative); BENZODIAZEPINES POSITIVE (Negative); COCAINE Negative (Negative); METHADONE Negative (Negative); OPIATES Negative (Negative); PCP Negative (Negative); THC Negative (Negative)
[2018-12-31 11:54] LABS: SQUAMOUS 0-3 Few /LPF (0-3); URINE RBC 3-10 Few /HPF (0-2); URINE WBC-REFLEX >25 Many /HPF (0-5)
[2018-12-31 11:55] LABS: CASTS None Seen /LPF (None Seen); CRYSTALS None Seen /LPF (None Seen); MUCUS 0-3 Light strn/LPF (None Seen)
[2018-12-31] MEDS ORDERED: AUGMENTIN 875-1 EACH PO (12:03)
--- NOTE | 2018-12-31 14:23 | EKG ---
[place] [address] ELECTROCARDIOGRAM REPORT Name: NEENA DIAZ Room: [facility]#: [id number] Admission: 12/31/18 Attend Phys: Discharge: Date of : 55 Report #: [id number] THIS REPORT FOR: //name// [facility] ED Test Date: 2018-12-31 Test Time: 10:33:51 Pat Name: NEENA DIAZ Department: Room: Gender: F Claim Agent: LAYTON : 1955 Requested By: Nik Mckenzie Order Number: [id number] MD: Inderjit Diaz Measurements Intervals [place] Rate: 96 P: 89 ID: [id number] QRS: 42 QRSD: 85 T: 62 QT: 340 QTc: 430 Interpretive Statements Sinus rhythm Borderline low voltage, extremity leads Compared to ECG 11/08/2018 20:57:34 No significant changes Electronically Signed On 12-31-2018 14:23:08 CDT by Inderjit Diaz [email or web address] <ELECTRONICALLY SIGNED> By: Inderjit Diaz MD, [facility] 12/31/18 1423 1033 1033 Inderjit Diaz MD, FACC /EPI
[2018-12-31] MEDS ORDERED: PREDNISONE50 MG PO (16:01)
[2018-12-31 18:23] VITALS: BP 151/89
== END 2018-12-31 18:23 ==
LOC: M.ERS 09:56
PROVIDERS: Emergency Medicine Emergency Medical Services
DX: R45.851 Suicidal ideations (principal); N39.0 Urinary tract infection, site not specified; J44.9 Chronic obstructive pulmonary disease, unspecified; I10 Essential (primary) hypertension; F41.9 Anxiety disorder, unspecified; K21.9 Gastro-esophageal reflux disease without esophagitis; F17.210 Nicotine dependence, cigarettes, uncomplicated; Z87.01 Personal history of pneumonia (recurrent); Z90.710 Acquired absence of both cervix and uterus; Z79.899 Other long term (current) drug therapy

== ENCOUNTER 2019-02-16 04:08 | Emergency (ER) | payer MEDICAID ==
[~2019-02-16] VITALS: Ht 162.6 cm; Wt 56.7 kg
[~2019-02-16 04:08] MED LIST changes: +AUGMENTIN 875-1 EACH PO; +BUSPIRONE HCL10 MG PO; +CLARITIN10 MG PO; +FLONASE 0.05%50 MCG NASAL; +PREDNISONE50 MG PO
[2019-02-16 04:36] LABS: ABSOLUTE BASOPHILS 0.1 thou/uL (0.0-0.2); ABSOLUTE EOSINOPHILS 0.7 thou/uL (0.0-0.7); ABSOLUTE LYMPHOCYTES 3.1 thou/uL (0.8-5.3); ABSOLUTE MONOCYTES 0.6 thou/uL (0.0-1.2); ABSOLUTE NEUTROPHILS 4.4 thou/uL (1.6-8.1); BASOPHILS 0.8 %; HEMOGLOBIN 13.3 gm/dL (12.0-15.0); LYMPHOCYTES 34.4 %; MCH 34.8 pg (26.0-34.0); MCHC 33.2 g/dL (28.0-37.0); MCV 104.9 fL (80.0-100.0); MONOCYTES 6.9 %; MPV 7.5 fl. (7.2-11.1); NUCLEATED RBCS 0 /100WBC; PLATELET COUNT* 384 thou/uL (150-400); POLYS 49.9 %; RBC 3.81 mil/uL (4.20-5.00); RDW-CV 13.8 % (10.5-14.5); WBC 8.9 thou/uL (4.0-11.0)
[2019-02-16 04:44] LABS: CALCIUM 8.8 mg/dL (8.5-10.1); CREATININE 0.6 mg/dL (0.6-1.3); POTASSIUM 3.2 mmol/L (3.5-5.1)
[2019-02-16 04:49] LABS: ALBUMIN 3.6 g/dL (3.4-5.0); TOTAL BILIRUBIN 0.6 mg/dL (<0.1-1.0); TOTAL PROTEIN 6.7 g/dL (6.4-8.2)
[2019-02-16] MEDS ORDERED: IPRAT-ALBUT 0.5-3 ML INH (06:02)
[2019-02-16] MEDS ORDERED: MEDROLDOSEPACK PO (06:02)
[2019-02-16 07:05] VITALS: BP 163/85
== END 2019-02-16 07:09 | disposition home or self-care (01) ==
LOC: M.ERS 04:08
PROVIDERS: Personal Emergency Response Attendant
DX: J44.1 Chronic obstructive pulmonary disease with (acute) exacerbation (principal); I10 Essential (primary) hypertension; F41.9 Anxiety disorder, unspecified; K21.9 Gastro-esophageal reflux disease without esophagitis; F17.210 Nicotine dependence, cigarettes, uncomplicated; Z90.710 Acquired absence of both cervix and uterus; Z87.01 Personal history of pneumonia (recurrent)

== ENCOUNTER 2019-07-14 05:06 | Inpatient (IN) | payer MEDICAID ==
[~2019-07-14] VITALS: Ht 162.6 cm; Wt 55.6 kg
[~2019-07-14 05:06] MED LIST changes: +IPRAT-ALBUT 0.5-3 ML INH; +MEDROLDOSEPACK PO; -MELATONIN1 MG PO; -NORVASC5 MG PO
[2019-07-14 05:12] VITALS: BP 148/86
[2019-07-14] MEDS ORDERED: BENADRYL25 MG PO (05:23)
[2019-07-14] MEDS ORDERED: FLONASE 0.05%50 MCG NARES (05:24)
[2019-07-14 05:46] LABS: ABSOLUTE BASOPHILS 0.1 thou/uL (0.0-0.2); ABSOLUTE EOSINOPHILS 0.4 thou/uL (0.0-0.7); ABSOLUTE LYMPHOCYTES 2.4 thou/uL (0.8-5.3); ABSOLUTE MONOCYTES 0.7 thou/uL (0.0-1.2); ABSOLUTE NEUTROPHILS 6.8 thou/uL (1.6-8.1); BASOPHILS 0.7 %; EOSINOPHILS 3.6 %; HEMOGLOBIN 13.7 gm/dL (12.0-15.0); LYMPHOCYTES 22.7 %; MCH 35.1 pg (26.0-34.0); MCHC 33.5 g/dL (28.0-37.0); MCV 104.7 fL (80.0-100.0); MONOCYTES 7.2 %; MPV 7.3 fl. (7.2-11.1); NUCLEATED RBCS 0 /100WBC; PLATELET COUNT* 302 thou/uL (150-400); POLYS 65.8 %; RBC 3.91 mil/uL (4.20-5.00); RDW-CV 15.9 % (10.5-14.5); WBC 10.4 thou/uL (4.0-11.0)
[2019-07-14 05:52] LABS: BE -2.6 mmol/L (-2 to +3); PCO2 36.3 mmHg (35.0-45.0); PO2 63.1 mmHg (75.0-100.0); pH 7.394 (7.340-7.450)
[2019-07-14 05:54] LABS: CREATININE 0.6 mg/dL (0.6-1.3); POTASSIUM 3.2 mmol/L (3.5-5.1)
[2019-07-14 05:59] LABS: ALBUMIN 3.8 g/dL (3.4-5.0); TOTAL BILIRUBIN 0.7 mg/dL (<0.1-1.0)
[2019-07-14 07:59] VITALS: BP 145/85
[2019-07-14 09:59] LABS: URINE BILIRUBIN NEGATIVE (Negative); URINE BLOOD NEGATIVE (Negative); URINE CLARITY CLEAR; URINE COLOR YELLOW; URINE GLUCOSE-RANDOM TRACE (Negative); URINE KETONES NEGATIVE (Negative); URINE LEUKOCYTES-REFLEX NEGATIVE (Negative); URINE NITRITE-REFLEX NEGATIVE (Negative); URINE PROTEIN NEGATIVE (Negative); URINE SPECIFIC GRAVITY <= 1.005 (1.005-1.030); URINE UROBILINOGEN 0.2 E.U./dl (0.2-1.0)
[2019-07-14 16:00] VITALS: BP 127/76
[2019-07-14 20:08] VITALS: BP 148/80
[2019-07-15] VITALS: BP 130/69
[2019-07-15 04:00] VITALS: BP 123/77
[2019-07-15 08:00] VITALS: BP 131/68
[2019-07-15 12:45] VITALS: BP 108/73
[2019-07-15 15:54] VITALS: BP 138/78
--- NOTE | 2019-07-15 16:31 | EKG ---
[place] [address] ELECTROCARDIOGRAM REPORT Name: NEENA DIAZ Room: [address] ADM IN M.R.#: [id number] Admission: 07/14/19 Attend Phys: Mirian Contreras Discharge: Date of : 55 Report #: [id number] THIS REPORT FOR: //name// [facility] ED Test Date: 2019-07-14 Test Time: 05:52:41 Pat Name: NEENA DIAZ Department: Room: 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1955 Requested By: Tammy Lloyd Order Number: [id number] MD: Michael Coleman Measurements Intervals [place] Rate: 103 P: 85 NM: 171 QRS: 30 QRSD: 85 T: 78 QT: 356 QTc: 466 Interpretive Statements Sinus tachycardia Right atrial enlargement Compared to ECG 12/31/2018 10:33:51 Atrial abnormality now present Sinus rhythm no longer present Electronically Signed On 07-15-2019 16:31:46 CDT by Michael Coleman [email or web address] <ELECTRONICALLY SIGNED> By: Michael Coleman MD, [facility] 07/15/19 1631 0552 0552 Michael Coleman MD, [facility] /EPI
[2019-07-15 20:39] VITALS: BP 137/73
[2019-07-16] VITALS: BP 121/61
[2019-07-16 04:00] VITALS: BP 142/76
[2019-07-16 08:00] VITALS: BP 147/78
[2019-07-16 11:02] VITALS: BP 126/69
[2019-07-16 16:00] VITALS: BP 116/68
[2019-07-16 21:02] VITALS: BP 150/85
[2019-07-17] VITALS: BP 163/91
[2019-07-17 03:43] VITALS: BP 139/74
[2019-07-17 07:41] VITALS: BP 148/72
[2019-07-17] MEDS ORDERED: VALIUM5 MG PO ×2 (10:56→12:45)
[2019-07-17] MEDS ORDERED: PREDNISONE 10 M10 MG PO (10:56)
[2019-07-17] MEDS ORDERED: DIFLUCAN150 M1 PO (10:56)
[2019-07-17] MEDS ORDERED: AZITHROMYCIN 2250 MG PO (10:56)
[2019-07-17] MEDS ORDERED: SYMBICORT160 MCG/4. INH (10:56)
[2019-07-17] MEDS ORDERED: SINGULAIR 10 MG10 MG PO (10:56)
[2019-07-17] MEDS ORDERED: HYDROCODONE-CH115 ML PO (10:56)
[2019-07-17] MEDS ORDERED: CEFDINIR300 MG PO (10:56)
[2019-07-17 11:05] VITALS: BP 161/81
[2019-07-17] MEDS ORDERED: MELATONIN1 MG PO (12:45)
[2019-07-17] MEDS ORDERED: NORVASC5 MG PO (12:45)
[2019-07-17 13:05] VITALS: BP 161/81
== END 2019-07-17 15:55 | disposition home or self-care (01) | DRG 177 ==
LOC: M.ERS 05:06 → M.TBA-ER 06:40 → M.2W 06:40
PROVIDERS: Personal Emergency Response Attendant; ADMIT Internal Medicine
DX: J15.6 Pneumonia due to other Gram-negative bacteria (principal); J96.01 Acute respiratory failure with hypoxia; J44.1 Chronic obstructive pulmonary disease with (acute) exacerbation; J44.0 Chronic obstructive pulmonary disease with (acute) lower respiratory infection; I10 Essential (primary) hypertension; F41.9 Anxiety disorder, unspecified; K21.9 Gastro-esophageal reflux disease without esophagitis; E87.6 Hypokalemia; F41.1 Generalized anxiety disorder; Z79.899 Other long term (current) drug therapy; Z90.710 Acquired absence of both cervix and uterus; Z87.891 Personal history of nicotine dependence

== ENCOUNTER 2019-12-18 11:18 | Inpatient (IN) | payer MEDICAID ==
[~2019-12-18] VITALS: Ht 160 cm; Wt 56.9 kg
[~2019-12-18 11:18] MED LIST changes: +AZITHROMYCIN 2250 MG PO; +CEFDINIR300 MG PO; +DIFLUCAN150 M1 PO; +FLONASE 0.05%50 MCG NARES; +HYDROCODONE-CH115 ML PO; +MELATONIN1 MG PO; +NORVASC5 MG PO; +SINGULAIR 10 MG10 MG PO
[2019-12-18 11:38] VITALS: BP 125/56
[2019-12-18 12:16] LABS: ABSOLUTE BASOPHILS 0.1 thou/uL (0.0-0.2); ABSOLUTE EOSINOPHILS 0.1 thou/uL (0.0-0.7); ABSOLUTE LYMPHOCYTES 2.1 thou/uL (0.8-5.3); ABSOLUTE MONOCYTES 0.6 thou/uL (0.0-1.2); ABSOLUTE NEUTROPHILS 5.7 thou/uL (1.6-8.1); BASOPHILS 0.7 %; EOSINOPHILS 1.4 %; HEMATOCRIT 35.2 % (37.0-47.0); HEMOGLOBIN 12.3 gm/dL (12.0-15.0); LYMPHOCYTES 24.1 %; MCH 34.2 pg (26.0-34.0); MCV 97.7 fL (80.0-100.0); MONOCYTES 7.4 %; MPV 6.9 fl. (7.2-11.1); NUCLEATED RBCS 0 /100WBC; PLATELET COUNT* 395 thou/uL (150-400); POLYS 66.4 %; RDW-CV 14.9 % (10.5-14.5); WBC 8.7 thou/uL (4.0-11.0)
[2019-12-18 12:24] LABS: URINE BILIRUBIN NEGATIVE (Negative); URINE BLOOD NEGATIVE (Negative); URINE CLARITY CLEAR; URINE COLOR YELLOW; URINE GLUCOSE-RANDOM NEGATIVE (Negative); URINE KETONES 1+ (Negative); URINE LEUKOCYTES-REFLEX NEGATIVE (Negative); URINE NITRITE-REFLEX NEGATIVE (Negative); URINE PROTEIN NEGATIVE (Negative); URINE SPECIFIC GRAVITY <= 1.005 (1.005-1.030); URINE UROBILINOGEN 0.2 E.U./dl (0.2-1.0)
[2019-12-18 12:24] LABS: CREATININE 0.6 mg/dL (0.6-1.3); POTASSIUM 3.8 mmol/L (3.5-5.1)
[2019-12-18 12:29] LABS: ALBUMIN 4.5 g/dL (3.4-5.0)
--- NOTE | 2019-12-18 17:02 | EKG ---
[place] [address] ELECTROCARDIOGRAM REPORT Name: NEENA DIAZ Room: [place] [address] ADM IN .R.#: [id number] Admission: 12/18/19 Attend Phys: Hipolito Ballesteros Discharge: Date of : 55 Date of Service: 12/18/19 1222 Report #: [id number] THIS REPORT FOR: //name// [facility] ED Test Date: 2019-12-18 Test Time: 12:22:14 Pat Name: NEENA DIAZ Department: Room: [facility] Gender: F Director Surgical: : 1955 Requested By: Shanell Ro Order Number: [id number] MD: Arnlod Link Measurements Intervals [place] Rate: 86 P: 92 MO: 182 QRS: 55 QRSD: 90 T: 86 QT: 383 QTc: 458 Interpretive Statements Sinus rhythm Right atrial enlargement Compared to ECG 07/14/2019 05:52:41 Sinus tachycardia no longer present Electronically Signed On 12-18-2019 17:01:35 CDT by Arnold Link [email or web address] <ELECTRONICALLY SIGNED> By: Arnold Link MD, FACC 12/18/19 1701 1222 1222 Arnold Link MD, [facility] /EPI
[2019-12-18 17:12] VITALS: BP 150/64
[2019-12-18 17:28] VITALS: BP 139/59
[2019-12-18 20:05] VITALS: BP 138/67
[2019-12-19 00:10] VITALS: BP 137/77
[2019-12-19 04:18] VITALS: BP 143/74
--- NOTE | 2019-12-19 05:04 | NUR ---
PATIENT SLEPT OFF AND ON DURING THIS SHIFT. PT IS ALERT/ORIENTED X4 BUT VERY CONFUSED AND FORGETFUL. PT WITH FLUIDS INFUSING PER DR ORDER. PT IS ON ROOM AIR. PT FORGEETS TO USE CALL LIGHT PRIOR TO GETTING OUT OF BED. PT DENIES NEEDS AT THIS TIME. FREQUENTLY USED ITEMS AND CALL LIGHT WITHIN REACH. SIDERAILS UPX2 AND BED ALARM ON. WILL CONTINUE TO MONITOR.
[2019-12-19 09:21] VITALS: BP 144/72
[2019-12-19 12:25] LABS: ABSOLUTE BASOPHILS 0.1 thou/uL (0.0-0.2); ABSOLUTE EOSINOPHILS 0.2 thou/uL (0.0-0.7); ABSOLUTE LYMPHOCYTES 2.3 thou/uL (0.8-5.3); ABSOLUTE MONOCYTES 0.8 thou/uL (0.0-1.2); ABSOLUTE NEUTROPHILS 4.8 thou/uL (1.6-8.1); BASOPHILS 1.5 %; EOSINOPHILS 2.6 %; HEMATOCRIT 34.2 % (37.0-47.0); HEMOGLOBIN 11.9 gm/dL (12.0-15.0); LYMPHOCYTES 28.3 %; MCH 33.8 pg (26.0-34.0); MCHC 34.7 g/dL (28.0-37.0); MCV 97.3 fL (80.0-100.0); MONOCYTES 9.3 %; MPV 7.4 fl. (7.2-11.1); NUCLEATED RBCS 0 /100WBC; PLATELET COUNT* 398 thou/uL (150-400); POLYS 58.3 %; RBC 3.51 mil/uL (4.20-5.00); RDW-CV 15.4 % (10.5-14.5); WBC 8.2 thou/uL (4.0-11.0)
[2019-12-19 12:40] LABS: CALCIUM 8.5 mg/dL (8.5-10.1); CREATININE 0.8 mg/dL (0.6-1.3); MAGNESIUM 1.9 mg/dL (1.8-2.4); POTASSIUM 3.6 mmol/L (3.5-5.1)
[2019-12-19 13:27] LABS: ESR (SEDRATE) 12 mm/hr (0-30)
--- NOTE | 2019-12-19 13:30 | NUR ---
Pt is A&O. Resides at home alone. Normally has in home caregivers, but states that they haven't been coming because of the Covid virus. Pt states that her niece has been dropping off groceries and Pt states that she has been doing ok at home. Pt wears home o2 at [facility] through [employer], no other DME. No hx of HH or SNF. Pt discharging to home today, cab voucher to be provided.
[2019-12-19 13:58] VITALS: BP 144/72
--- NOTE | 2019-12-19 14:06 | NUR ---
DISCONTINUE IV AND TELE. AWAITING CAB VOUCHER FROM HOUSING FROM HOUSING MANAGER VIDEO.
== END 2019-12-19 14:45 | disposition home or self-care (01) | DRG 392 ==
LOC: M.ERS 11:18 → M.TBA-ER 15:08 → M.2W 15:08
PROVIDERS: Physician Assistant; ADMIT Internal Medicine
DX: K52.9 Noninfective gastroenteritis and colitis, unspecified (principal); E87.1 Hypo-osmolality and hyponatremia; J44.9 Chronic obstructive pulmonary disease, unspecified; I10 Essential (primary) hypertension; F41.9 Anxiety disorder, unspecified; K21.9 Gastro-esophageal reflux disease without esophagitis; F17.210 Nicotine dependence, cigarettes, uncomplicated; E03.9 Hypothyroidism, unspecified; R91.1 Solitary pulmonary nodule; Z90.710 Acquired absence of both cervix and uterus; Z79.899 Other long term (current) drug therapy

== ENCOUNTER 2020-02-27 14:40 | Emergency (ER) | payer MEDICAID ==
[~2020-02-27] VITALS: Ht 170.2 cm; Wt 79.4 kg
[2020-02-27 15:10] LABS: ABSOLUTE BASOPHILS 0.1 thou/uL (0.0-0.2); ABSOLUTE EOSINOPHILS 0.1 thou/uL (0.0-0.7); ABSOLUTE LYMPHOCYTES 2.9 thou/uL (0.8-5.3); ABSOLUTE MONOCYTES 0.5 thou/uL (0.0-1.2); ABSOLUTE NEUTROPHILS 4.3 thou/uL (1.6-8.1); BASOPHILS 0.7 %; EOSINOPHILS 1.1 %; HEMATOCRIT 33.3 % (37.0-47.0); HEMOGLOBIN 11.8 gm/dL (12.0-15.0); LYMPHOCYTES 37.2 %; MCH 35.5 pg (26.0-34.0); MCHC 35.4 g/dL (28.0-37.0); MCV 100.5 fL (80.0-100.0); MONOCYTES 6.2 %; MPV 7.1 fl. (7.2-11.1); NUCLEATED RBCS 0 /100WBC; PLATELET COUNT* 291 thou/uL (150-400); POLYS 54.8 %; RBC 3.31 mil/uL (4.20-5.00); RDW-CV 14.8 % (10.5-14.5); WBC 7.8 thou/uL (4.0-11.0)
[2020-02-27 15:20] LABS: CALCIUM 7.8 mg/dL (8.5-10.1); CREATININE 0.9 mg/dL (0.6-1.3); POTASSIUM 3.8 mmol/L (3.5-5.1)
[2020-02-27 15:25] LABS: ALBUMIN 3.2 g/dL (3.4-5.0); TOTAL BILIRUBIN 0.3 mg/dL (<0.1-1.0); TOTAL PROTEIN 5.7 g/dL (6.4-8.2)
[2020-02-27 16:08] LABS: URINE BILIRUBIN NEGATIVE (Negative); URINE BLOOD NEGATIVE (Negative); URINE COLOR YELLOW; URINE GLUCOSE-RANDOM NEGATIVE (Negative); URINE KETONES NEGATIVE (Negative); URINE NITRITE-REFLEX NEGATIVE (Negative); URINE PROTEIN NEGATIVE (Negative); URINE UROBILINOGEN 0.2 E.U./dl (0.2-1.0)
[2020-02-27 16:09] LABS: URINE CLARITY HAZY; URINE LEUKOCYTES-REFLEX 3+ (Negative)
[2020-02-27 16:13] LABS: BACTERIA-REFLEX >30 Many /HPF (None Seen); CASTS None Seen /LPF (None Seen); CRYSTALS None Seen /LPF (None Seen); SQUAMOUS 4-10 Moderate /LPF (0-3); URINE RBC None Seen /HPF (0-2); URINE WBC-REFLEX 6-15 Few /HPF (0-5)
[2020-02-27 16:17] LABS: AMP/METHAMP Negative (Negative); BARBITURATES Negative (Negative); BENZODIAZEPINES POSITIVE (Negative); COCAINE Negative (Negative); METHADONE Negative (Negative); OPIATES Negative (Negative); PCP Negative (Negative); THC Negative (Negative)
[2020-02-27] MEDS ORDERED: KEFLEX500 M1 PO (16:54)
[2020-02-27] MEDS ORDERED: PHENERGAN 25 MG25 M1 PO (16:54)
[2020-02-27 17:13] VITALS: BP 135/70
--- NOTE | 2020-02-28 16:51 | EKG ---
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 02/28/20 1649 1500 1500 Inderjit Diaz MD, [facility] /EPI
== END 2020-02-27 17:14 | disposition home or self-care (01) ==
LOC: M.ERS 14:40
PROVIDERS: Nurse Practitioner Family
DX: R11.2 Nausea with vomiting, unspecified (principal); N39.0 Urinary tract infection, site not specified; F10.10 Alcohol abuse, uncomplicated; J44.9 Chronic obstructive pulmonary disease, unspecified; I10 Essential (primary) hypertension; F17.210 Nicotine dependence, cigarettes, uncomplicated; F41.9 Anxiety disorder, unspecified; K21.9 Gastro-esophageal reflux disease without esophagitis; Z90.710 Acquired absence of both cervix and uterus; Z79.899 Other long term (current) drug therapy

== ENCOUNTER 2020-07-23 19:05 | Emergency (ER) | payer MEDICAID ==
[~2020-07-23] VITALS: Ht 162.6 cm; Wt 52.6 kg
[~2020-07-23 19:05] MED LIST changes: +KEFLEX500 M1 PO
[2020-07-23 19:34] LABS: ABSOLUTE BASOPHILS 0.1 thou/uL (0.0-0.2); ABSOLUTE EOSINOPHILS 0.1 thou/uL (0.0-0.7); ABSOLUTE LYMPHOCYTES 2.4 thou/uL (0.8-5.3); ABSOLUTE MONOCYTES 0.5 thou/uL (0.0-1.2); ABSOLUTE NEUTROPHILS 4.8 thou/uL (1.6-8.1); BASOPHILS 0.8 %; EOSINOPHILS 0.7 %; HEMATOCRIT 30.6 % (37.0-47.0); HEMOGLOBIN 10.5 gm/dL (12.0-15.0); LYMPHOCYTES 30.7 %; MCH 34.1 pg (26.0-34.0); MCHC 34.4 g/dL (28.0-37.0); MCV 99.4 fL (80.0-100.0); MONOCYTES 6.2 %; MPV 6.1 fl. (7.2-11.1); NUCLEATED RBCS 0 /100WBC; PLATELET COUNT* 405 thou/uL (150-400); POLYS 61.6 %; RBC 3.08 mil/uL (4.20-5.00); WBC 7.8 thou/uL (4.0-11.0)
[2020-07-23 19:35] LABS: URINE BILIRUBIN NEGATIVE (Negative); URINE BLOOD NEGATIVE (Negative); URINE CLARITY CLEAR; URINE COLOR YELLOW; URINE GLUCOSE-RANDOM NEGATIVE (Negative); URINE KETONES NEGATIVE (Negative); URINE LEUKOCYTES-REFLEX NEGATIVE (Negative); URINE NITRITE-REFLEX NEGATIVE (Negative); URINE PROTEIN NEGATIVE (Negative); URINE SPECIFIC GRAVITY <= 1.005 (1.005-1.030); URINE UROBILINOGEN 0.2 E.U./dl (0.2-1.0)
[2020-07-23] MEDS ORDERED: NEURONTIN100 MG PO (19:37)
[2020-07-23 19:47] LABS: CREATININE 0.7 mg/dL (0.6-1.3); POTASSIUM 4.3 mmol/L (3.5-5.1)
[2020-07-23 19:48] LABS: AMP/METHAMP Negative (Negative); BARBITURATES Negative (Negative); BENZODIAZEPINES POSITIVE (Negative); COCAINE Negative (Negative); METHADONE Negative (Negative); OPIATES Negative (Negative); PCP Negative (Negative); THC Negative (Negative)
[2020-07-23 19:52] LABS: ALBUMIN 3.9 g/dL (3.4-5.0); TOTAL BILIRUBIN 0.4 mg/dL (<0.1-1.0)
[2020-07-23 19:58] LABS: ALCOHOL 97 mg/dL (<10); SALICYLATE < 2.8 mg/dL (2.8-20.0)
[2020-07-23 19:59] LABS: ACETAMINOPHEN < 2 ug/mL (10-30)
[2020-07-24 13:53] VITALS: BP 98/58
== END 2020-07-24 14:31 ==
LOC: M.ERS 19:05
PROVIDERS: Emergency Medicine Emergency Medical Services
DX: R45.851 Suicidal ideations (principal); Z20.828 Contact with and (suspected) exposure to other viral communicable diseases; J44.9 Chronic obstructive pulmonary disease, unspecified; I10 Essential (primary) hypertension; K21.9 Gastro-esophageal reflux disease without esophagitis; F17.210 Nicotine dependence, cigarettes, uncomplicated; Z79.899 Other long term (current) drug therapy; Z90.710 Acquired absence of both cervix and uterus

== ENCOUNTER 2021-02-02 14:02 | Inpatient (IN) | payer OTHER, MEDICAID ==
[~2021-02-02] VITALS: Ht 160 cm; Wt 52.2 kg
[~2021-02-02 14:02] MED LIST changes: +NEURONTIN100 MG PO
[2021-02-02 14:08] VITALS: BP 98/71
[2021-02-02] MEDS ORDERED: KLONOPIN1 MG PO (14:12)
[2021-02-02 14:27] LABS: ABSOLUTE BASOPHILS 0.1 thou/uL (0.0-0.2); ABSOLUTE EOSINOPHILS 0.1 thou/uL (0.0-0.7); ABSOLUTE LYMPHOCYTES 1.7 thou/uL (0.8-5.3); ABSOLUTE MONOCYTES 0.4 thou/uL (0.0-1.2); ABSOLUTE NEUTROPHILS 4.5 thou/uL (1.6-8.1); BASOPHILS 0.9 %; EOSINOPHILS 1.7 %; HEMATOCRIT 33.1 % (37.0-47.0); HEMOGLOBIN 11.6 gm/dL (12.0-15.0); LYMPHOCYTES 25.5 %; MCH 35.5 pg (26.0-34.0); MCHC 35.1 g/dL (28.0-37.0); MCV 101.1 fL (80.0-100.0); MONOCYTES 6.4 %; MPV 6.6 fl. (7.2-11.1); NUCLEATED RBCS 0 /100WBC; PLATELET COUNT* 368 thou/uL (150-400); POLYS 65.5 %; RBC 3.27 mil/uL (4.20-5.00); RDW-CV 13.1 % (10.5-14.5); WBC 6.9 thou/uL (4.0-11.0)
[2021-02-02 14:41] LABS: CALCIUM 8.5 mg/dL (8.5-10.1); CREATININE 0.5 mg/dL (0.6-1.3); POTASSIUM 4.4 mmol/L (3.5-5.1)
[2021-02-02 14:44] LABS: APTT 29.6 Seconds (25.0-31.3); PROTIME 10.3 Seconds (9.20-11.50)
[2021-02-02 14:52] LABS: URINE BILIRUBIN NEGATIVE (Negative); URINE BLOOD NEGATIVE (Negative); URINE CLARITY CLEAR; URINE COLOR YELLOW; URINE GLUCOSE-RANDOM NEGATIVE (Negative); URINE KETONES NEGATIVE (Negative); URINE LEUKOCYTES-REFLEX NEGATIVE (Negative); URINE NITRITE-REFLEX NEGATIVE (Negative); URINE PROTEIN NEGATIVE (Negative); URINE SPECIFIC GRAVITY <= 1.005 (1.005-1.030); URINE UROBILINOGEN 0.2 E.U./dl (0.2-1.0)
[2021-02-02 14:54] LABS: ALBUMIN 3.6 g/dL (3.4-5.0); MAGNESIUM 1.6 mg/dL (1.8-2.4); TOTAL BILIRUBIN 0.4 mg/dL (<0.1-1.0); TOTAL PROTEIN 6.9 g/dL (6.4-8.2)
--- NOTE | 2021-02-02 16:14 | EKG ---
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 : 1955 Requested By: Rahul Wei Order Number: [id number] MD: Michael Coleman Measurements Intervals [place] Rate: 81 P: 93 CO: 163 QRS: 55 QRSD: 98 T: 63 QT: 375 QTc: 436 Interpretive Statements Sinus rhythm Borderline low voltage, extremity leads Compared to ECG 02/27/2020 15:00:51 No significant changes Electronically Signed On 02-02-2021 16:14:15 CDT by Michael Coleman [email or web address] <ELECTRONICALLY SIGNED> By: Michael Coleman MD, [facility] 02/02/21 1614 1409 1409 Michael Coleman MD, [facility] /EPI
[2021-02-02 17:25] VITALS: BP 121/54
[2021-02-02 17:30] VITALS: BP 157/85
[2021-02-02 19:50] VITALS: BP 133/68
[2021-02-02 23:36] VITALS: BP 113/59
[2021-02-02 23:56] VITALS: BP 113/59
[2021-02-03 04:00] VITALS: BP 115/64
[2021-02-03 08:00] VITALS: BP 139/75
[2021-02-03 14:13] VITALS: BP 168/84
[2021-02-03 16:30] VITALS: BP 141/82
[2021-02-03] MEDS ORDERED: GUAIFEN-CODEINE10 ML PO (16:34)
[2021-02-03] MEDS ORDERED: DOXYCYCLINE 10100 MG PO (16:34)
[2021-02-03 20:00] VITALS: BP 152/82
[2021-02-04 00:05] VITALS: BP 144/80; BP 149/71
[2021-02-04 04:21] LABS: HEMATOCRIT 31.6 % (37.0-47.0); HEMOGLOBIN 10.9 gm/dL (12.0-15.0); MCH 34.9 pg (26.0-34.0); MCHC 34.5 g/dL (28.0-37.0); MCV 101.1 fL (80.0-100.0); RBC 3.13 mil/uL (4.20-5.00); RDW-CV 12.9 % (10.5-14.5); WBC 9.4 thou/uL (4.0-11.0)
[2021-02-04 04:24] VITALS: BP 131/70; BP 150/91
[2021-02-04 04:30] LABS: CALCIUM 8.1 mg/dL (8.5-10.1); CREATININE 0.6 mg/dL (0.6-1.3); POTASSIUM 3.8 mmol/L (3.5-5.1)
[2021-02-04 08:00] VITALS: BP 158/70
[2021-02-04 11:24] VITALS: BP 158/70
[2021-02-04 12:24] VITALS: BP 158/70
== END 2021-02-04 12:29 | disposition home or self-care (01) | DRG 871 ==
LOC: M.ERS 14:02 → M.TBA-ER 15:21 → M.2W 15:21
PROVIDERS: Family Medicine; ADMIT Internal Medicine; ATTEND Internal Medicine
DX: A41.9 Sepsis, unspecified organism (principal); J96.01 Acute respiratory failure with hypoxia; J44.1 Chronic obstructive pulmonary disease with (acute) exacerbation; E87.1 Hypo-osmolality and hyponatremia; J44.0 Chronic obstructive pulmonary disease with (acute) lower respiratory infection; Z20.822 Contact with and (suspected) exposure to COVID-19; F41.9 Anxiety disorder, unspecified; I10 Essential (primary) hypertension; J20.9 Acute bronchitis, unspecified; F17.210 Nicotine dependence, cigarettes, uncomplicated; K21.9 Gastro-esophageal reflux disease without esophagitis; Z90.710 Acquired absence of both cervix and uterus; Z87.01 Personal history of pneumonia (recurrent); Z79.899 Other long term (current) drug therapy